=== PATIENT | female | born 1955 | race Asian ===

== ENCOUNTER → 2025-04-08 | Outpatient (CLI) | payer MEDICAID, SELFPAY ==
--- NOTE | 2025-04-08 11:45 | XR_ITS ---
Examination: Screening digital mammography, bilateral Computer aided detection 3-D breast Tomosynthesis, bilateral Date and time of exam: April 08, 2025 1139 hours Compared to mammograms dating to April 26, 2021 Indication: Screening Technique: Nonmagnified MLO, CC views of the breasts to been obtained, reconstructed from 3-D Tomosynthesis images. R2 computer aided detection program utilized for evaluation of suspicious masses and/or abnormal calcifications. 3-D Tomosynthesis images obtained. Findings: Scattered areas of fibroglandular density. Benign calcifications. Stable nodular density upper right breast MLO view This nodule is not described on the right breast sonogram January 30, 2023 Impression: BI-RADS Category 0: Incomplete: Need additional imaging evaluation 14 mm nodule upper right breast MLO view posterior depth, outer right breast on the CC view, which is not described on the right breast sonogram January 30, 2023, recommend bilateral breast sonography follow-up
== END | disposition home or self-care (01) ==
LOC: CDIM 11:32
PROVIDERS: PCP Obstetrics & Gynecology; Referring Provider Obstetrics & Gynecology; Visit Provider Obstetrics & Gynecology
DX: Z12.31 Encounter for screening mammogram for malignant neoplasm of breast (principal); N63.11 Unspecified lump in the right breast, upper outer quadrant
CPT/HCPCS: 77063; 77067

== ENCOUNTER → 2025-04-27 | Outpatient (CLI) | payer MEDICARE, MEDICAID, SELFPAY ==
--- NOTE | 2025-04-27 11:00 | XR_ITS ---
Examination: Breast ultrasound complete, bilateral Date and time of exam: April 27, 2025 1104 hours INDICATIONS: Mammogram April 08, 2024 14 mm nodule upper right breast Technique: Real-time grayscale ultrasonographic imaging bilateral breasts, including all 4 quadrants as well as nipple retroareolar and axillary regions. Findings: Sonographic images right breast No cystic or solid mass Sonographic images left breast 1:00 oval mass 12 x 5 x 10 mm lobular margins IMPRESSION: BI-RADS Category 3: Probably benign findings Recommend 1 continued 6 month left breast sonogram follow-up to document stability of 1:00 nodule described above
== END | disposition home or self-care (01) ==
PROVIDERS: PCP Student in an Organized Health Care Education/Training Program; Referring Provider Obstetrics & Gynecology; Visit Provider Obstetrics & Gynecology
DX: N63.21 Unspecified lump in the left breast, upper outer quadrant (principal)
CPT/HCPCS: 76641